=== PATIENT | male | born 1965 | race Caucasian/White ===

== ENCOUNTER 2020-08-07 14:49 | Emergency (ER) | payer OTHER ==
[~2020-08-07 14:49] MED LIST: CHOLESTEROL1 GM PO
[2020-08-07] MEDS ORDERED: BACLOFEN 10MG T10 MG PO (17:37)
[2020-08-07] MEDS ORDERED: NAPROXEN500 MG PO (17:37)
[2020-09-03] MEDS ORDERED: MOTRIN600 MG PO (11:47)
[2020-09-03] MEDS ORDERED: ACETAMINOPHEN500 M1 PO (11:47)
[2020-11-11] MEDS ORDERED: BACLOFEN20 MG PO (13:59)
[2020-11-11] MEDS ORDERED: DICLOFENAC SODI75 MG PO (13:59)
[2020-11-16] MEDS ORDERED: PERCOCET 5-3251 EACH PO (07:45)
== END 2020-08-07 18:00 | disposition home or self-care (01) ==
LOC: FER 14:49
DX: M54.2 Cervicalgia (principal); M54.6 Pain in thoracic spine; M54.5 Low back pain; M25.561 Pain in right knee; V43.52XA Car driver injured in collision with other type car in traffic accident, initial encounter; Y92.410 Unspecified street and highway as the place of occurrence of the external cause
CPT/HCPCS: 70450; 72125; 72128; 72131; 73564; 96372; J1100; J1885

== ENCOUNTER → 2020-09-03 | Day surgery (SDC) | payer OTHER ==
[~2020-09-03] VITALS: Ht 188 cm; Wt 100.7 kg
[~2020-09-03] MED LIST changes: +ACETAMINOPHEN500 M1 PO; +BACLOFEN 10MG T10 MG PO; +MOTRIN600 MG PO; +NAPROXEN500 MG PO
== END | disposition home or self-care (01) ==
LOC: FAS 09:08
DX: S70.352A Superficial foreign body, left thigh, initial encounter (principal); E88.89 Other specified metabolic disorders; Z79.2 Long term (current) use of antibiotics; Z98.84 Bariatric surgery status; W45.8XXA Other foreign body or object entering through skin, initial encounter; W22.8XXA Striking against or struck by other objects, initial encounter; Y99.0 Civilian activity done for income or pay
CPT/HCPCS: 76000; J1100; J1885; J2250; J2405; J2704; J3010; J7120

== ENCOUNTER → 2020-11-16 | Day surgery (SDC) | payer OTHER ==
[~2020-11-16] VITALS: Ht 188 cm; Wt 98.4 kg
[~2020-11-16] MED LIST changes: +BACLOFEN20 MG PO; +DICLOFENAC SODI75 MG PO; +PERCOCET 5-3251 EACH PO
[2020-11-16 11:48] LABS: HCT 43.8 % (42.0-52.0); HGB 14.6 g/dl (13.2-18.0); MCHC 33.3 g/dL (32.0-36.0); MPV 9.9 fL (6.0-9.5); RBC 4.71 M/uL (4.70-6.00); RDW 12.4 % (11.5-14.0); WBC 5.8 K/uL (4.0-10.5)
[2020-11-16 12:35] LABS: ALBUMIN 3.7 g/dL (3.4-5.0); BILIRUBIN - TOTAL 0.5 mg/dL (0.2-1.0); BUN/CREAT RATIO (CALC) 12.4 RATIO; CREATININE 0.97 mg/dL (0.67-1.17); GLOBULIN (CALCULATION) 3.3 g/dL; POTASSIUM 4.4 mmol/L (3.5-5.1)
== END | disposition home or self-care (01) ==
LOC: FAS 11:12
PROVIDERS: Orthopaedic Surgery
DX: S83.241A Other tear of medial meniscus, current injury, right knee, initial encounter (principal); M17.11 Unilateral primary osteoarthritis, right knee; M71.21 Synovial cyst of popliteal space [Baker], right knee; M79.4 Hypertrophy of (infrapatellar) fat pad; M67.51 Plica syndrome, right knee
CPT/HCPCS: 36415; 80053; J1100; J1170; J1885; J2250; J2405; J2704; J3010; J7120